=== PATIENT | female | born 1985 | race Caucasian/White ===

== ENCOUNTER 2024-10-31 12:02 | Emergency (ER) | payer OTHER, SELFPAY ==
--- NOTE | ~2024-10-31 | XR_ITS ---
EXAMINATION: XR abdomen/kub 1V DATE: 10/31/2024 15:21 INDICATION: Proximal left ureteral stone. TECHNIQUE: A supine view of the abdomen on 2 radiographs was obtained. COMPARISON: CT dated 10/31/2024 FINDINGS: A 6 mm stone at the left ureteropelvic junction isn't clearly visible in the left upper quadrant proj ecting lateral to the left transverse process of L2. Small phlebolith in the left hemipelvis. Normal bowel gas pattern. IMPRESSION: 1. Clearly visible 6 mm stone at the left ureteropelvic junction. Reviewed, dictated and finalized at location A.
--- NOTE | ~2024-10-31 | CT_ITS ---
Non-contrast CT scan of the Abdomen and Pelvis Clinical indication: Left flank pain Technique: 2.5 mm axial scans were obtained through the abdomen and pelvis without intravenous or or al contrast. Dose reduction technique was used on this scan by utilizing automated exposure control a nd iterative reconstruction technique. The dose-length product (DLP) was 1584.60 mGy-cm. Findings: Images through the lung bases reveal no abnormalities. There is a 6.5 mm ovoid stone at the left renal pelvis/proximal ureter with minimal fullness of left renal collecting system. Additional punctate nonobstructing left renal stones present. No right renal or ureteral stones. Number hydronephrosis. The liver, spleen, pancreas, gallbladder, and adrenals appear normal. There is no aortic aneurysm. There is no evidence of bowel obstruction. Images through the pelvis were performed. There is no evidence of ascites or lymphadenopathy. Urinary bladder unremarkable. No pelvic mass seen. No ascites. Impression: 6.5 mm stone at the left renal pelvis/proximal left ureter with minimal fullness of left renal collec ting system. Additional punctate nonobstructing left renal stone. Reviewed, dictated and finalized at location . Impression: 6.5 mm stone at the left renal pelvis/proximal left ureter with minimal fullnes s of left renal collecting system. Additional punctate nonobstructing left renal stone.
[2024-10-31 12:05] VITALS: BP 156/97; PULSE 99; RESP 18; TEMP 36.5; O2SAT 100
[2024-10-31 12:49] LABS: Basophils Absolute Auto 0.1 K/mm3 (0.0-0.1); Basophils Percent Auto 0.5 % (0.2-1.2); Eosinophils Absolute Auto 0.3 K/mm3 (0-0.3); Eosinophils Percent Auto 2.8 % (0-4.4); Hematocrit 43.2 % (37.0-47.0); Hemoglobin 14.2 g/dL (12.0-15.0); Immature Granulocyte Absolute 0.04 K/mm3 (0.00-0.031); Immature Granulocyte Percent A 0.4 % (0-0.5); Immature Platelet Fraction Pct 13.8 % (0.9-11.2); Lymphocytes Absolute Auto 1.73 K/mm3 (0.9-3.2); Lymphocytes Percent Auto 15.4 % (18.3-44.2); Mean Corpuscular HGB Conc 32.9 g/dl (32-36); Mean Corpuscular Hemoglobin 26.5 pg (26-34); Mean Corpuscular Volume 80.6 fl (80-100); Mean Platelet Volume 13.1 fl (7.4-10.4); Monocytes Absolute Auto 0.7 K/mm3 (0.1-0.6); Monocytes Percent Auto 6.6 % (2.6-8.5); Neutrophils Absolute Auto 8.4 K/mm3 (1.3-6.7); Neutrophils Percent Auto 74.3 % (45.5-73.1); Platelet Count Result 166 k/mm3 (150-375); Red Blood Count 5.36 M/mm3 (4.2-5.4); Red Cell Distribution Width 14.8 % (11.5-14.5); White Blood Count 11.2 K/mm3 (4.5-10.0)
--- NOTE | 2024-10-31 12:59 | ED.FEMALEGU ---
HPI - Female Genitourinary General Chief complaint: Urogenital-Female Stated complaint: Poss kidney stones Time Seen by Provider: 10/31/24 12:31 Source: patient Mode of arrival: ambulatory Limitations: no limitations History of Present Illness HPI Narrative: Patient is a 38-year-old female who presents the ED with report of left-sided abdominal and flank pain. Patient reports she has been having intermittent pain over the last 4 days present in her left flank region. She has long history of kidney stones and states pain feels similar. Last night, pain was present mostly in left lower abdomen and she thought she may be passing this stone. This morning, she reported having worsening pain and difficulty urinating, which prompted her presentation. Reports possible slight hematuria, though notes she is starting her menstrual cycle. She is a couple of days late on her menstrual cycle. Reports nausea, denies vomiting. Denies fevers. Has not taken anything for pain today. Related Data Allergies Allergy/AdvReac Type Severity Reaction Status Date / Time No Known Allergies Allergy Verified 10/31/24 12:03 Review of Systems Review of Systems: All systems reviewed & are unremarkable except as noted in HPI. All systems reviewed & are unremarkable except as noted in HPI and below Exam Narrative: GENERAL: Well appearing, morbidly obese with BMI of 54.0, non-toxic, in no acute distress. HEAD: Normocephalic, atraumatic. RESPIRATORY: Airway patent, respirations nonlabored. Clear to auscultation bilaterally, no rales, rhonchi, wheezing. CARDIOVASCULAR: Regular rate and rhythm without murmurs, rubs, or gallops. ABDOMINAL: Soft, no significant tenderness throughout left-sided abdomen, nondistended. Normoactive BS. Mild CVA tenderness to percussion on left. MUSCULOSKELETAL: Moves all extremities. No gross deformities. SKIN: Warm, dry, normal color. NEURO: A&O X3. Speech clear. PSYCHIATRIC: Appropriate mood and affect. Normal interaction. Course Vital Signs Vital signs: Vital Signs Temperature 97.7 F 10/31/24 12:05 Pulse Rate 99 10/31/24 12:05 Respiratory Rate 18 10/31/24 12:05 Blood Pressure 156/97 H 10/31/24 12:05 Pulse Oximetry 100 10/31/24 12:05 Oxygen Delivery Room Air 10/31/24 12:05 Temperature 97.7 F 10/31/24 12:05 Pulse Rate 78 10/31/24 16:37 Respiratory Rate 16 10/31/24 16:37 Blood Pressure 149/78 H 10/31/24 16:37 Pulse Oximetry 96 10/31/24 16:37 Oxygen Delivery Room Air 10/31/24 12:05 MDM - Female Genitourinary MDM Narrative Medical decision making narrative: Patient presented to ED with left-sided abdominal and flank pain. History of kidney stones. Vital signs are stable upon arrival. Patient is afebrile. Did not take anything for pain. Does not want anything for pain currently. Cbc with blood cell count of 11.2. CMP unremarkable. Kidney function stable. negative. UA with 1+ leuk esterase, 21-50 RBC/WBC, moderate squamous cells, 1+ urine bacteria. Sent for culture. CT scan of abdomen/pelvis was obtained showing 6.5 mm left proximal stone. Consistent with exam and clinical picture. KUB was obtained and does visualize stone. I discussed case with Dr. Messer, urology, advised she will likely need a lithotripsy for management of the stone, but they do not accept her insurance here. Recommended she follow up with Urology team at [facility] ([phone]). Advised to call office to make follow-up appointment. Patient is agreeable to this plan. Will be discharged on Flomax, pain medication, Keflex. She was given dose of IV Rocephin here. Advised to avoid anti-inflammatories in preparation for procedure. Patient given strict return precautions. She voiced understanding. Discharged in stable condition. Medical Records Attestation: I reviewed the patient's medical records. Lab Data Attestation: I reviewed the patient's lab results. 10/31/24 12:41 10/31/24 12:41 Labs: Lab Results 10/31/24 10/31/24 Range/Units 12:41 13:34 WBC 11.2 H (4.5-10.0) K/mm3 RBC 5.36 (4.2-5.4) M/mm3 Hgb 14.2 (12.0-15.0) g/dL Hct 43.2 (37.0-47.0) % MCV 80.6 (80-100) fl MCH 26.5 (26-34) pg MCHC 32.9 (32-36) g/dl RDW 14.8 H (11.5-14.5) % Plt Count 166 (150-375) k/mm3 MPV 13.1 H (7.4-10.4) fl Immature Gran % (Auto) 0.4 (0-0.5) % Neut % (Auto) 74.3 H (45.5-73.1) % Lymph % (Auto) 15.4 L (18.3-44.2) % [place] % (Auto) 6.6 (2.6-8.5) % Eos % (Auto) 2.8 (0-4.4) % Baso % (Auto) 0.5 (0.2-1.2) % Lymph # (Auto) 1.73 (0.9-3.2) K/mm3 [place] # (Auto) 0.7 H (0.1-0.6) K/mm3 Eos # (Auto) 0.3 (0-0.3) K/mm3 Baso # (Auto) 0.1 (0.0-0.1) K/mm3 Abs Immat Gran (auto) 0.04 H (0.00-0.031) K/mm3 Absolute Neuts (auto) 8.4 H (1.3-6.7) K/mm3 Absolute Nucleated RBC 0.000 (0.0-0.012) K/mm3 Nucleated RBC % 0.0 (0.0-0.2) % % Immature Plt Fraction 13.8 H (0.9-11.2) % Sodium 140 (137-145) mmol/L Potassium 3.6 (3.4-5.0) mmol/L Chloride 104 (98-107) mmol/L Carbon Dioxide 26 (22-30) mmol/L Anion Gap 10 (4-12) mmol/L BUN 6 L (7-17) mg/dL Creatinine 0.49 L (0.7-1.0) mg/dL Estim Creat Clear Calc 188 ml/min Estimated GFR > 60 (59 - ) Glucose 131 H (65-110) mg/dL Calcium 9.0 (8.4-10.2) mg/dL Total Bilirubin 0.5 (0.2-1.3) mg/dL AST 18 (14-36) U/L ALT 21 (6-35) U/L Alkaline Phosphatase 96 (38-126) U/L Total Protein 7.0 (6.3-8.2) g/dL Albumin 3.9 (3.5-5.1) g/dL Beta HCG, Quant < 2.39 mIU/ML Urine Color Dark yellow (Yellow) Urine Appearance Cloudy H (Clear) Urine pH 5.5 (5.0-9.0) Ur Specific [place] 1.020 (1.001-1.035) Urine Protein 1+ H (Negative) mg/dL Urine Glucose (UA) Negative (Negative) mg/dL Urine Ketones Trace H (Negative) mg/dL Ur Blood (Man) 3+ H (Negative) Urine Nitrate Negative (Negative) Urine Bilirubin Negative (Negative) Urine Urobilinogen 1.0 (<2.0) mg/dL Leukocyte Esterase Rfl 1+ H (Negative) MYRON/UL Urine RBC 21-50 H (0-2) /hpf Urine WBC 21-50 H (0-3) /hpf Ur Squamous Epith Cells Moderate (Few) /hpf Urine Bacteria 1+ H /hpf Urine Casts 6-10 Urine Mucus Present /lpf Imaging Data Attestation: I personally reviewed and interpreted this imaging study as follows: Radiologist's impression: ITS Impressions Abdomen/Pelvis CT 10/31/24 13:47 Impression: 6.5 mm stone at the left renal pelvis/proximal left ureter with minimal fullness of left renal collecting system. Additional punctate nonobstructing left renal stone. Abdomen X-Ray 10/31/24 16:00 IMPRESSION: 1. Clearly visible 6 mm stone at the left ureteropelvic junction. Discharge Plan Discharge Clinical Impression: Calculus of proximal left ureter, Abnormal urinalysis Patient Disposition: Home, Self-Care Condition: Stable Instructions: Antibiotic Form, Kidney Stones (ED), Urinary Tract Infection in Women (ED) Additional Instructions: Take antibiotics as prescribed. Take Flomax daily as prescribed. Continue Tylenol as needed for pain. [place] as needed for more severe pain. Avoid anti-inflammatories as this is likely will need a urologic procedure, avoid ibuprofen, Motrin, Aleve, naproxen, Advil. Utilize Zofran for nausea. Stay well hydrated. Call Urology office at [facility] or first thing in the morning to make a follow-up appointment for further care. Return to the ED if you experience worsening or severe pain, unable to keep down food/drink, fevers, uncontrollable nausea/vomiting, unable to urinate, or any other symptoms of concern. [facility] in [place], [place] - [phone] Patient Language: Cambodian Prescriptions: New hydrocodone-acetaminophen 5-325 mg tablet 1 tablet PO Q6H PRN (Reason: pain) Qty: 10 0RF cephalexin 500 mg capsule 500 mg PO Q6H 7 Days Qty: 28 0RF tamsulosin [Flomax] 0.4 mg capsule 0.4 mg PO DAILY Qty: 7 0RF ondansetron 4 mg tablet,disintegrating 4 mg PO Q8H PRN (Reason: nausea and vomiting) Qty: 15 0RF Follow-up/Referrals: PHYSICIAN,GRAVEL TRUCK DRIVER [Non-Staff] - Time of Disposition: 16:22
[2024-10-31 13:01] LABS: Alanine Aminotransferase 21 U/L (6-35); Albumin Level 3.9 g/dL (3.5-5.1); Alkaline Phosphatase 96 U/L (38-126); Anion Gap 10 mmol/L (4-12); Aspartate Amino Transferase 18 U/L (14-36); Bilirubin,Total 0.5 mg/dL (0.2-1.3); Blood Urea Nitrogen 6 mg/dL (7-17); Carbon Dioxide 26 mmol/L (22-30); Chloride 104 mmol/L (98-107); Estimated CRCL calculation 188 ml/min; Estimated Glomerular Filt Rate > 60; Glucose 131 mg/dL (65-110); Potassium 3.6 mmol/L (3.4-5.0); Sodium 140 mmol/L (137-145)
--- OUTSIDE RECORDS SUMMARY | 2024-10-31 13:09 | XMS_ITS | Clinical Summary ---
Author Organization [facility] Address [address] [place] [id number] Care Team Providers Care Canvas Repairer Name Role Phone None, Provider MD Primary Care Provider Unavaila ble Allergies No known active allergies Medications No known medications Social History Tobacco Use Types Packs/Day Years Used Date Smoking Tobacco: Never Smokeless Tobacco: Never Alcohol Use Standard Drinks/Week Comments No 0 (1 standard drink = 0.6 oz pur e alcohol) AUDIT-C Answer Date Recorded Frequency of Alcohol Consumption Never 08/14/2019 Average Number of Drinks Not on file 020 Frequency of Binge Drinking Not on file 08/02 Comments No Sex and Gender Information Value Date Recorded Sex Assigned at Not on file Legal Sex Female 8:25 PM CDT Gender Identity Not on file Sexual Orientation Not on file Last Filed Vital Signs Vital Sign Reading Time Taken Comments Blood Pressure 153/90 08/14/2019 11:58 AM MANAGER OUTPATIENT Pulse 93 08/14/2019 11:58 AM MANAGER OUTPATIENT Temperature 36.8 C (98.3 F) 08/14/2019 10:27 AM MANAGER OUTPATIENT Respiratory Rate 20 08/14/2019 11:58 AM MANAGER OUTPATIENT Oxygen Saturation 98% 08/14/2019 11:58 AM MANAGER OUTPATIENT Inhaled Oxygen Concentration - - Weight 149.7 kg (330 lb) 08/14/2019 10:27 AM MANAGER OUTPATIENT Height 165.1 cm (5' 5 ) 08/14/2019 10:27 AM MANAGER OUTPATIENT Body Mass Index 54.91 08/14/2019 10:27 AM MANAGER OUTPATIENT Plan of Treatment Health Maintenance Due Date Last Done Comments Cervical Cancer Screening Pa p Smear (Age 30 to 64) Every 3 Years 1984 Annual Physical 12/01/1987 Hepatitis C 2002 DTaP, Tdap and Td Vaccines ( 1 - Tdap) 12/01/2003 Hepatitis B Vaccines (1 of 3 - 19+ 3-dose series) 12/01/2003 Cervical Cancer Screening Pa p with HPV Testing (Age 30 to 64) Every 5 Years 2014 Cervical Cancer Screening with HPV 2014 COVID-19 Vaccine (2023-2 5 season) 2024 Influenza Adult (#1) 2024 HPV Vaccines Aged Out No longer eligi ble based on patient's age to complete this topic Meningococcal B Vaccine Aged Out No l onger eligible based on patient's age to complete this topic Meningococcal Vaccine Aged Out No siddharth adriane eligible based on patient's age to complete this topic Pneumococcal Vaccine: Pediat rics (0 to 5 Years) and At-Risk Patients (6 to 64 Years) Aged Out No longer eligible b ased on patient's age to complete this topic RSV Immunizations Under 20 Months Aged Out No longer eligible based on patient's age to complete this topic Insurance [employer] Care Teams Canvas Repairer Relationship Specialty Start Date End Date None, Provider, PCP - General 08/14/19
[2024-10-31 13:23] LABS: Beta HCG Quantitative < 2.39 mIU/ML
[2024-10-31] MEDS: SODIUM CHLORIDE 0.9% IV 1,000 ML 999 ML IV CONT (13:40)
[2024-10-31 13:57] LABS: Add Urine Microscopic? YES; Appearance Urine Cloudy (Clear); Bacteria Urine 1+ /hpf; Bilirubin Urine Negative (Negative); Blood Urine 3+ (Negative); Color Urine Dark Yellow (Yellow); Glucose Urine UA Negative (Negative); Ketones Urine Trace mg/dL (Negative); Leukocyte Esterase Ur 1+ LEU/UL (Negative); Mucus Urine Present /lpf; Nitrate Urine Negative (Negative); Protein Urine 1+ mg/dL (Negative); RBC Urine 21-50 /hpf (0-2); Squamous Epithelial Cell Urine Moderate /hpf (Few); WBC Urine 21-50 /hpf (0-3); pH Urine 5.5 (5.0-9.0)
--- OUTSIDE RECORDS SUMMARY | 2024-10-31 14:46 | XMS_ITS | Clinical Summary ---
Author Organization [facility] Address [address] [place] [id number] Care Team Providers Care Cash Checker Name Role Phone None, Provider MD Primary [...] Comments Blood Pressure 153/90 08/14/2019 11:58 AM EMERGENCY MEDICAL DISPATCHER Pulse 93 08/14/2019 11:58 AM EMERGENCY MEDICAL DISPATCHER Temperature 36.8 C (98.3 F) 08/14/2019 10:27 AM EMERGENCY MEDICAL DISPATCHER Respiratory Rate 20 08/14/2019 11:58 AM EMERGENCY MEDICAL DISPATCHER Oxygen Saturation 98% 08/14/2019 11:58 AM EMERGENCY MEDICAL DISPATCHER Inhaled Oxygen Concentration - - Weight 149.7 kg (330 lb) 08/14/2019 10:27 AM EMERGENCY MEDICAL DISPATCHER Height 165.1 cm (5' 5 ) 08/14/2019 10:27 AM EMERGENCY MEDICAL DISPATCHER Body Mass Index 54.91 08/14/2019 10:27 AM EMERGENCY MEDICAL DISPATCHER Plan of Treatment Health Maintenance Due Date [...] complete this topic Insurance [employer] Care Teams Cash Checker Relationship Specialty Start Date End Date None, Provider, PCP - General 08/14/19
[2024-10-31] MEDS: TAMSULOSIN HCL 0.4 MG CAPSULE PO (16:30)
[2024-10-31 16:37] VITALS: BP 149/78; PULSE 78; RESP 16; O2SAT 96
== END 2024-10-31 16:39 | disposition home or self-care (01) ==
PROVIDERS: Emergency Provider Physician Assistant
DX: N20.1 Calculus of ureter (principal); R82.998 Other abnormal findings in urine
CPT/HCPCS: 36415; 74018; 74176; 80053; 81001; 84702; 85025; 85055; 87086; 96361; 96365; 99284; A9270; J0696; J7030